=== PATIENT | female | born 1975 | race Caucasian/White ===

== ENCOUNTER 2017-11-12 16:01 | Emergency (ER) | payer OTHER ==
[~2017-11-12] VITALS: Ht 160 cm; Wt 66.2 kg
--- OUTSIDE RECORDS SUMMARY | ~2017-11-12 | XMS | Clinical Summary ---
Demographics + + + | Address | [address] | | | [place] [address] | + + + | Home Phone | | + + + | Preferred Language | Unknown | + + + | Marital Status | Single | + + + | Pentecostal Affiliation | Unknown | + + + | Race | Unknown | + + + | Ethnic Group | Unknown | + + + Author + + + | Author | [facility] | | | and [place] | + + + | Organization | [facility] | | | and [place] | + + + | Address | Unknown | + + + | Phone | Unavailable | + + + Support + + +---------+ + | Name | Relationship | Address | Phone | + + +---------+ + | TIBURCIO ACOSTA | ECON | Unknown | | + + +---------+ + Care Team Providers + +------+ + | Care Doctor Of Nurse Anesthesia Name | Role | Phone | + +------+ + PP | Unavailable | + +------+ + Allergies + + + +--------+ + | Active Allergy | Reactions | Severity | Noted | Comments | | | | | Date | | + + + +--------+ + | Butorphanol | | | | | + + + +--------+ + Current Medications + + +-------+---------+------+------+-------+ | Prescription | Sig. | Disp. | Refills | Star | End | Statu | | | | | | t | Date | s | | | | | | Date | | | + + +-------+---------+------+------+-------+ | propranolol | Take 20 mg by mouth | | | 10/08 | | Activ | | (INDERAL) 20 MG | 2 times daily. | | | 04/26 | | e | | tablet | | | | 12 | | | + + +-------+---------+------+------+-------+ | acetaminophen | Take 325 mg by mouth | | | 10/08 | | Activ | | (TYLENOL) 325 mg | as needed. | | | 320 | | e | | tablet | | | | 12 | | | + + +-------+---------+------+------+-------+ | | Take 500-25 mg by | | | 10/08 | | Activ | | diphenhydrAMINE-acet | mouth nightly as | | | 320 | | e | | aminophen (TYLENOL | needed. 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 | + + + | SLEEP APNEA | 08/17/2010 | + + + + + | Overview: ICD-10 Record update | + + + +---+ | LYMPHADENOPATHY | | + +---+ | HEADACHE, CHRONIC | | + +---+ | ALLERGY, FOOD, HX OF | | + +---+ | DYSPNEA ON EXERTION | | + +---+ Social History + +-------+ +--------+------+ | Tobacco Use | Types | Packs/Day | Years | Date | | | | | Used | | + +-------+ +--------+------+ | Never Assessed | | | | | + +-------+ +--------+------+ + + + | Sex Assigned at | Date Recorded | | | | + + + | Not on file | | + + + Last Filed Vital Signs + + + + | Vital Sign | Reading | Time Taken | + + + + | Blood Pressure | 90/62 | 08/17/2010 0000 PDT | + + + + | Pulse | - | - | + + + + | Temperature | - | - | + + + + | Respiratory Rate | - | - | + + + + | Oxygen Saturation | - | - | + + + + | Inhaled Oxygen | - | - | | Concentration | | | + + + + | Weight | 56.7 kg (125 lb) | 08/17/2010 0000 PDT | + + + + | Height | 162.6 cm (5' 4") | 07/07/2010 0000 PDT | + + + + | Body Mass Index | 21.46 | 08/17/2010 0000 PDT | + + + + Plan of Treatment + + + + + | Health Maintenance | Due Date | Last Done | Comments | + + + + + | Vaccine: | | | | | Dtap/Tdap/Td (1 - | 7 | | | | Tdap) | | | | + + + + + | Cervical Cancer | | | | | Screening (Pap) | 8 | | | + + + + + | Vaccine: Influenza | | | | | (#1) | 8 | | | + + + + + Results Not on filefrom Last 3 Months
--- OUTSIDE RECORDS SUMMARY | ~2017-11-12 | XMS | Clinical Summary ---
Demographics + + + | Address | [address] | | | [place] [address] | + + + | Home Phone | | + + + | Preferred Language | Unknown | + + + | Marital Status | Single | + + + | Evangelical Affiliation | 1013 | + + + | Race | Unknown | + + + | Ethnic Group | Unknown | + + + Author + + + | Author | [facility] | + + + | Organization | [facility] | + + + | Address | Unknown | + + + | Phone | Unavailable | + + + Support + + +---------+ + | Name | Relationship | Address | Phone | + + +---------+ + | Pattie Guillen | ECON | Unknown | | + + +---------+ + Care Team Providers + +------+ + | Care Clerk Travel Reservations Name | Role | Phone | + +------+ + | Candelario Partida DO | PP | | + +------+ + Allergies Not on File Current Medications Not on file Active Problems Not on file Social History + +-------+ +--------+------+ | Tobacco [...] on file | | + + + Plan of Treatment Not on file Results Not on filefrom Last 3 Months"
--- OUTSIDE RECORDS SUMMARY | ~2017-11-12 | XMS | Clinical Summary ---
Demographics + + + | Address | [address] | | | [place] [address] | + + + | Home Phone | | + + + | Preferred Language | Unknown | + + + | Marital Status | Single | + + + | Jewish Affiliation | 1013 | + + + | Race | Unknown | + + + | Ethnic Group | Unknown | + + + Author + + + | Author | [facility] | + + + | Organization | [facility] | + + + | Address | Unknown | + + + | Phone | Unavailable | + + + Support + + +---------+ + | Name | Relationship | Address | Phone | + + +---------+ + | Pattie Guillen | ECON | Unknown | | + + +---------+ + Care Team Providers + +------+ + | Care Metal Sprayer Machined Parts Name | Role | Phone | + [...]
--- OUTSIDE RECORDS SUMMARY | ~2017-11-12 | XMS | Clinical Summary ---
Demographics + + + | Address | [address] | | | [place] [address] | + + + | Home Phone | | + + + | Preferred Language | Unknown | + + + | Marital Status | Single | + + + | Gnosticist Affiliation | Unknown | + + + | Race | Unknown | + + + | Ethnic Group | Unknown | + + + Author + + + | Author | [facility] | | | and [place] | + + + | Organization | [facility] | | | and [place] | [...] Team Providers + +------+ + | Care Air Marshal Name | Role | Phone | + [...]
[~2017-11-12 16:01] MED LIST: AMBIEN5 MG PO; BAYER BACK & B1 EACH PO; BENTYL20 MG PO; BUSPIRONE HCL15 MG PO; BUTALBITAL-ASA1 EACH PO; COMPAZINE25 MG RC; CRUTCH1 EACH; DICLOFENAC SODI75 MG PO; EXCEDRIN MIGRA1 EAC1 PO; FIORICET 50-321 EACH PO; IBUPROFEN600 MG PO; IBUPROFEN800 MG PO; MAXALT MLT10 MG PO; NORCO 10-325 T1 EACH PO; NORCO 5-325 TA1 EACH PO; PROPRANOLOL HCL20 MG PO; TRAMADOL HCL50 MG PO; TYLENOL EXTRA500 M1 PO
[2017-11-12] MEDS ORDERED: RIZATRIPTAN5 M1 PO (16:31)
[2017-11-12] MEDS ORDERED: REGLAN10 MG PO (17:50)
== END 2017-11-12 18:31 | disposition home or self-care (01) ==
LOC: ED 16:01
DX: G43.909 Migraine, unspecified, not intractable, without status migrainosus (principal); F17.200 Nicotine dependence, unspecified, uncomplicated; Z88.8 Allergy status to other drugs, medicaments and biological substances; Z91.018 Allergy to other foods; Z79.899 Other long term (current) drug therapy
CPT/HCPCS: 96374; 96375; 99283; J1200; J2765

== ENCOUNTER 2020-09-20 10:21 | Emergency (ER) | payer BC ==
[~2020-09-20] VITALS: Ht 160 cm; Wt 66.2 kg
[~2020-09-20 10:21] MED LIST changes: +ONDANSETRON ODT8 MG PO; +REGLAN10 MG PO; +RIZATRIPTAN5 M1 PO
--- OUTSIDE RECORDS SUMMARY | 2020-09-20 10:24 | XMS ---
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 Elder has no Care Guidelines for this patient. Osmani VISIT COUNT (12 MO.) 1 [place] [address] SHAMEKA Guevara TOTAL 2 NOTE: Visits indicate total known visits. ED/C VISIT TRACKING (12 MO.) 09/20/2020 10:22 SHAME[facility] Gregory [place] TYPE: Emergency COMPLAINT: - HEADACHE 11/24/2019 09:53 [facility] [place] TYPE: Emergency DIAGNOSES: - Contusion of left front wall of thorax, initial encounter - LEFT SIDE PAIN DUE TO FALL - Strain of muscle, fascia and tendon at neck level, initial encounter INPATIENT VISIT TRACKING (12 MO.) No inpatient visits to display in this time frame [id number]
[2020-09-20] MEDS ORDERED: RIZATRIPTAN10 M1 PO (10:44)
[2020-09-20] MEDS ORDERED: DESVENLAFAXINE25 MG PO (10:44)
== END 2020-09-20 13:02 | disposition home or self-care (01) ==
LOC: ED 10:21
DX: G43.909 Migraine, unspecified, not intractable, without status migrainosus (principal); F17.200 Nicotine dependence, unspecified, uncomplicated; Z88.8 Allergy status to other drugs, medicaments and biological substances; Z79.899 Other long term (current) drug therapy
CPT/HCPCS: 96374; 96375; 99283-25; J1200; J1885; J2550; J7030

== ENCOUNTER 2021-04-23 06:21 | Emergency (ER) | payer BC ==
[~2021-04-23] VITALS: Ht 160 cm; Wt 70.1 kg
[~2021-04-23 06:21] MED LIST changes: +DESVENLAFAXINE25 MG PO; +RIZATRIPTAN10 M1 PO
[2021-04-23] MEDS ORDERED: ALPRAZOLAM0.25 MG PO (07:02)
[2021-04-23] MEDS ORDERED: MACROBID 100 M100 MG PO (07:12)
== END 2021-04-23 08:58 | disposition home or self-care (01) ==
LOC: ED 06:21
DX: N39.0 Urinary tract infection, site not specified (principal); G43.909 Migraine, unspecified, not intractable, without status migrainosus; F17.200 Nicotine dependence, unspecified, uncomplicated; Z88.8 Allergy status to other drugs, medicaments and biological substances; Z91.018 Allergy to other foods; Z79.899 Other long term (current) drug therapy
CPT/HCPCS: 36415; 80048; 81001; 84703; 85025; 87088; 96365; 96375; 96376; 99283-25; A9270; J0696; J2270; J7030

== ENCOUNTER 2021-05-02 01:43 | Emergency (ER) | payer BC ==
[~2021-05-02] VITALS: Ht 160 cm; Wt 70.8 kg
[~2021-05-02 01:43] MED LIST changes: +ALPRAZOLAM0.25 MG PO; +MACROBID 100 M100 MG PO
--- OUTSIDE RECORDS SUMMARY | 2021-05-02 01:46 | XMS ---
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 EAndrew VISIT COUNT (12 MO.) 3 [facility] TOTAL 3 NOTE: Visits indicate total known visits. ED/UCC VISIT TRACKING (12 MO.) 05/02/2021 01:43 [facility] Gregory [place] TYPE: Emergency COMPLAINT: - ALLERGIC REACTION 04/23/2021 06:22 SHAME[facility] Gregory [place] TYPE: Emergency COMPLAINT: - BOTH FLANK PAIN DIAGNOSES: - Urinary tract infection, site not specified - Migraine, unspecified, not intractable, without status migrainosus - Other intermediate project manager (current) drug therapy - Nicotine dependence, unspecified, uncomplicated - Unspecified abdominal pain - Allergy to other foods - Allergy status to other drugs, medicaments and biological substances 09/20/2020 10:[email or web address] [facility] [place] TYPE: Emergency COMPLAINT: - HEADACHE DIAGNOSES: - Other intermediate project manager (current) drug therapy - Headache, unspecified - Nicotine dependence, unspecified, uncomplicated - Migraine, unspecified, not intractable, without status migrainosus - Allergy status to other drugs, medicaments and biological substances INPATIENT VISIT TRACKING (12 MO.) No inpatient visits to display in this time frame [id number]
[2021-05-02] MEDS ORDERED: LEVOFLOXACIN250 MG PO (01:56)
[2021-05-02] MEDS ORDERED: EPIN0.3P IM (02:34)
[2021-05-02] MEDS ORDERED: PREDNISONE20 MG PO (02:34)
[2021-05-03] MEDS ORDERED: HYDROXYZINE HCL25 MG PO (11:02)
[2021-05-03] MEDS ORDERED: PREDNISONE20 MG PO (11:02)
== END 2021-05-02 03:00 | disposition home or self-care (01) ==
LOC: ED 01:43
DX: L50.0 Allergic urticaria (principal); G43.909 Migraine, unspecified, not intractable, without status migrainosus; F17.200 Nicotine dependence, unspecified, uncomplicated; Z88.8 Allergy status to other drugs, medicaments and biological substances; Z91.018 Allergy to other foods; Z79.899 Other long term (current) drug therapy
CPT/HCPCS: 96374; 96375; 99283-25; J1100; J1200

== ENCOUNTER 2021-05-03 07:47 | Emergency (ER) | payer BC ==
[~2021-05-03] VITALS: Ht 160 cm; Wt 70.8 kg
[~2021-05-03 07:47] MED LIST changes: +EPIN0.3P IM; +LEVOFLOXACIN250 MG PO; +PREDNISONE20 MG PO
--- OUTSIDE RECORDS SUMMARY | 2021-05-03 07:50 | XMS ---
PreManage Notification: DENISE SPRINGER Security Maintenance Craftsman Events No recent Security Events currently on file [facility] [place] [facility] C[facility] PROVIDERS [facility] Current PHONE: [phone] Elder has no Care Guidelines for this patient. EAndrew VISIT COUNT (12 MO.) 4 [facility] TOTAL 4 NOTE: Visits indicate total known visits. ED/UCC VISIT TRACKING (12 MO.) 05/03/2021 07:48 [facility] Gregory [place] TYPE: Emergency COMPLAINT: - POSS ALERGIC REACTION 05/02/2021 01:43 [facility] Gregory [place] TYPE: Emergency COMPLAINT: - ALLERGIC REACTION 04/23/2021 06:22 SHAME[facility] Gregory [place] TYPE: Emergency COMPLAINT: - BOTH FLANK PAIN DIAGNOSES: - Urinary tract infection, site not specified - Migraine, unspecified, not intractable, without status migrainosus - Other fpc (current) drug therapy - Nicotine dependence, unspecified, uncomplicated - Unspecified abdominal pain - Allergy to other foods - Allergy status to other drugs, medicaments and biological substances 09/20/2020 10:22 [facility] Gregory [place] TYPE: Emergency COMPLAINT: - HEADACHE DIAGNOSES: - Other fpc (current) drug therapy - Headache, unspecified - Nicotine dependence, unspecified, uncomplicated - Migraine, unspecified, not intractable, without status migrainosus - Allergy status to other drugs, medicaments and biological substances INPATIENT VISIT TRACKING (12 MO.) No inpatient visits to display in this time frame [id number]
[2021-05-03] MEDS ORDERED: HYDROXYZINE HCL25 MG PO (11:02)
[2021-05-03] MEDS ORDERED: PREDNISONE20 MG PO (11:02)
== END 2021-05-03 11:10 | disposition home or self-care (01) ==
LOC: ED 07:47
DX: L50.0 Allergic urticaria (principal); G43.909 Migraine, unspecified, not intractable, without status migrainosus; F17.200 Nicotine dependence, unspecified, uncomplicated; Z88.8 Allergy status to other drugs, medicaments and biological substances; Z91.018 Allergy to other foods; Z79.899 Other long term (current) drug therapy
CPT/HCPCS: 96374; 96375; 99283-25; J0171; J1100

== ENCOUNTER 2021-07-24 10:31 | Emergency (ER) | payer BC ==
[~2021-07-24] VITALS: Ht 160 cm; Wt 68.0 kg
[~2021-07-24 10:31] MED LIST changes: +HYDROXYZINE HCL25 MG PO
--- OUTSIDE RECORDS SUMMARY | 2021-07-24 10:34 | XMS ---
PreManage Notification: DENISE SPRINGER Security Golf Starter And Ranger Events No recent Security Events currently on file CRITERIA MET - PDMP CARE PROVIDERS RA[facility] 09/22/2020-Current PHONE: [phone] Elder has no Care Guidelines for this patient. E.DLorraine VISIT COUNT (12 MO.) 5 SHAMEKA Guevara TOTAL 5 NOTE: Visits indicate total known visits. ED/UCC VISIT TRACKING (12 MO.) 07/24/2021 10:32 SHAME[facility] Gregory [place] TYPE: Emergency COMPLAINT: - CHEST PAIN, L BACK/SHOULDER/ARM PAIN 05/03/2021 07:48 SHAME[facility] Gregory [place] TYPE: Emergency COMPLAINT: - POSS ALERGIC REACTION DIAGNOSES: - Allergic urticaria - Allergy status to other drugs, medicaments and biological substances - Other machine long goods helper (current) drug therapy - Migraine, unspecified, not intractable, without status migrainosus - Allergy to other foods - Nicotine dependence, unspecified, uncomplicated 05/02/2021 01:43 SHAME[facility] Gregory [place] TYPE: Emergency COMPLAINT: - ALLERGIC REACTION DIAGNOSES: - Rash and other nonspecific skin eruption - Other machine long goods helper (current) drug therapy - Nicotine dependence, unspecified, uncomplicated - Allergic urticaria - Allergy to other foods - Allergy status to other drugs, medicaments and biological substances - Migraine, unspecified, not intractable, without status migrainosus 04/23/2021 06:22 [facility] Gregory [place] TYPE: Emergency COMPLAINT: - BOTH FLANK PAIN DIAGNOSES: - Urinary tract infection, site not specified - Migraine, unspecified, not intractable, without status migrainosus - Other machine long goods helper (current) drug therapy - Nicotine dependence, unspecified, uncomplicated - Unspecified abdominal pain - Allergy to other foods - Allergy status to other drugs, medicaments and biological substances 09/20/2020 10:22 [facility] Gregory [place] TYPE: Emergency COMPLAINT: - HEADACHE DIAGNOSES: - Other machine long goods helper (current) drug therapy - Headache, unspecified - Nicotine dependence, unspecified, uncomplicated - Migraine, unspecified, not intractable, without status migrainosus - Allergy status to other drugs, medicaments and biological substances INPATIENT VISIT TRACKING (12 MO.) No inpatient visits to display in this time frame [id number]
--- NOTE | 2021-07-26 12:32 | EKG ---
[facility] [address] [place] [address] Signed Normal sinus rhythm Normal ECG No previous ECGs available Confirmed by EMMANUEL REDDING MD ([id number]) on 07/26/2021 12:31:55 PM Electronically Signed By: EMMANUEL REDDING MD 07/26/21 1232 PATIENT NAME: DENISE SPRINGER Electrocardiogram DATE OF : 79 PHYSICIAN: EMMANUEL REDDNIG MD REPORT #: [id number] REPORT IS CONFIDENTIAL AND NOT TO BE RELEASED WITHOUT AUTHORIZATION
== END 2021-07-24 11:43 | disposition home or self-care (01) ==
LOC: ED 10:31
DX: R07.89 Other chest pain (principal); M79.10 Myalgia, unspecified site; G43.909 Migraine, unspecified, not intractable, without status migrainosus; F17.200 Nicotine dependence, unspecified, uncomplicated; Z88.8 Allergy status to other drugs, medicaments and biological substances; Z79.52 Long term (current) use of systemic steroids
CPT/HCPCS: 36415; 71045; 80053; 84484; 85025; 93005; 93010; 99285-25

== ENCOUNTER 2022-03-30 05:45 | Emergency (ER) | payer BC ==
[~2022-03-30] VITALS: Ht 160 cm; Wt 68.1 kg
--- OUTSIDE RECORDS SUMMARY | 2022-03-30 05:48 | XMS ---
PreManage Notification: DENISE SPRINGER Security Meter/Relay Craftsman Events No recent Security Events currently on file CRITERIA MET - PDMP CARE PROVIDERS [facility] 09/22/2020-Current PHONE: [phone] Elder has no Care Guidelines for this patient. E.DLorraine VISIT COUNT (12 MO.) 5 SHAMEKA Guevara TOTAL 5 NOTE: Visits indicate total known visits. ED/UCC VISIT TRACKING (12 MO.) 03/30/2022 05:45 [facility] Gregory [place] TYPE: Emergency COMPLAINT: - ABD PAIN 07/24/2021 10:32 SH[facility] Gregory [place] TYPE: Emergency COMPLAINT: - CHEST PAIN, L BACK/SHOULDER/ARM PAIN DIAGNOSES: - Migraine, unspecified, not intractable, without status migrainosus - joint terminal attack controller (current) use of systemic steroids - Nicotine dependence, unspecified, uncomplicated - Allergy status to other drugs, medicaments and biological substances - Other chest pain - Myalgia, unspecified site 05/03/2021 07:48 SH[facility] Gregory [place] TYPE: Emergency COMPLAINT: - POSS ALERGIC REACTION DIAGNOSES: - Allergic urticaria - Nicotine dependence, unspecified, uncomplicated - Migraine, unspecified, not intractable, without status migrainosus - Allergy status to other drugs, medicaments and biological substances - Allergy to other foods - Other watermaster (current) drug therapy 05/02/2021 01:43 [facility] Gregory [place] TYPE: Emergency COMPLAINT: - ALLERGIC REACTION DIAGNOSES: - Rash and other nonspecific skin eruption - Allergy status to other drugs, medicaments and biological substances - Allergic urticaria - Other watermaster (current) drug therapy - Migraine, unspecified, not intractable, without status migrainosus - Allergy to other foods - Nicotine dependence, unspecified, uncomplicated 04/23/2021 06:22 [facility] Gregory [place] TYPE: Emergency COMPLAINT: - BOTH FLANK PAIN DIAGNOSES: - Urinary tract infection, site not specified - Allergy to other foods - Nicotine dependence, unspecified, uncomplicated - Migraine, unspecified, not intractable, without status migrainosus - Allergy status to other drugs, medicaments and biological substances - Unspecified abdominal pain - Other care home (current) drug therapy INPATIENT VISIT TRACKING (12 MO.) No inpatient visits to display in this time frame [id number]
== END 2022-03-30 07:00 | disposition home or self-care (01) ==
LOC: ED 05:45
DX: K59.00 Constipation, unspecified (principal); G43.909 Migraine, unspecified, not intractable, without status migrainosus; F17.200 Nicotine dependence, unspecified, uncomplicated; Z88.8 Allergy status to other drugs, medicaments and biological substances; Z91.018 Allergy to other foods; Z79.899 Other long term (current) drug therapy
CPT/HCPCS: 74022; 99283-25

== ENCOUNTER 2022-05-27 10:51 | Day surgery (SDC) | payer BC ==
[~2022-05-27] VITALS: Ht 160 cm; Wt 74.0 kg
[~2022-05-27 10:51] MED LIST changes: +RIZATRIPTAN5 MG PO
[2022-05-27 11:18] VITALS: BP 112/76
--- NOTE | 2022-05-27 12:16 | NUR ---
05/27/22 1216 Viola Bunn 1206 PATIENT ARRIVES TO PACU AWAKE BUT DROWSY. NC AT 2 LITERS ON ARRIVAL TURNED OFF. PATIENT DENIES PAIN AND NAUSEA. RESP EVEN AND UNLABORED. 1212 PATIENT AWAKE TALKING TO STAFF APPROPRIATELY. RESP EVEN AND UNLABORED. CONTINUES TO DENY PAIN AND NAUSEA. SITTING UP TAKING SIPS OF SODA. O2 SAT >95% ON ROOM AIR. PASSES GAS.
[2022-05-27 12:34] VITALS: BP 109/82
--- NOTE | 2022-05-27 19:14 | OR ---
[facility] [address] [place], [place] [address] Signed DATE OF OPERATION: 05/27/2022 SURGEON: Robert Gupta MD PREOPERATIVE DIAGNOSIS: Chronic progressive constipation. POSTOPERATIVE DIAGNOSIS: Normal-appearing colon. PROCEDURE: Total colonoscopy to cecum with biopsy of rectum. ANESTHESIA: Intravenous sedation, fentanyl 150 mcg and Versed 10 mg. INDICATIONS: This 46-year-old white woman is a patient of Dr. Lola Mckee, has been bothered by constipation rather significantly. She has no blood per rectum and no family history of colon cancer. Her medications include alprazolam, BuSpar, Rizatriptan, and Zofran as needed. Various approaches for management have been unsuccessful thus far. She is admitted to undergo colonoscopy to assure there is no evidence of obstructive process, understanding the risk of bleeding, infection, and perforation related to colonoscopy. She understand that she wished to proceed. FINDINGS: The prep was excellent. Complete colonoscopy was undertaken to the cecum. There was some difficulty in passage of the sigmoid, possibly related to scar tissue from hysterectomy, though that is not certain. There is no true obstruction and certainly no other abnormality that would account for constipation problem. DESCRIPTION OF PROCEDURE: The patient was brought to the endoscopy suite and placed in lateral decubitus position given intravenous sedation to the point of slurred speech and nystagmus. Digital rectal examination was normal. An Olympus video colonoscope was passed into the rectum and manipulated throughout the colon. Passage to the sigmoid area was somewhat challenging requiring additional sedation. Once past that area, the scope was ultimately advanced to the cecum. The prep was quite good. The scope was withdrawn from that point. Examination throughout showed no sign of abnormality at all. Biopsies were taken of the rectum to rule out pathology. The scope was removed, and the patient was Electronically Signed By: ROBERT GUPTA MD 05/27/22 1914 PATIENT NAME: DENISE SPRINGER OPERATIVE REPORT DATE OF : 79 REPORT #: [id number] PHYSICIAN: ROBERT GUPTA MD PCP: LOLA MCKEE MD REPORT IS CONFIDENTIAL AND NOT TO BE RELEASED WITHOUT AUTHORIZATION [facility] [address] [place], [place] [address] Signed taken to the recovery room in good condition. CONCLUDING DIAGNOSIS: Idiopathic constipation, longstanding and worsening. PLAN: We will outline a regimen to include MiraLAX 1 scoop p.o. daily, Citrucel one scoop p.o. daily, Senokot one tablet p.o. daily and increase water intake and exercise. She will see us back in the office and if these measures are not effective in establishing a good bowel routine for her, consideration will be made for Linzess or other similar agent. MD EDGAR Bryant/VALENT[place] /[id number] cc: Lola Mckee MD Copies: LOLA MCKEE DMD ~ Electronically Signed By: ROBERT GUPTA MD 05/27/22 1914 PATIENT NAME: SPRINGERDENISEGERI WILKINS OPERATIVE REPORT DATE OF : 79 REPORT #: [id number] PHYSICIAN: ROBERT GUPTA MD PCP: LOLA MCKEE MD REPORT IS CONFIDENTIAL AND NOT TO BE RELEASED WITHOUT AUTHORIZATION
== END 2022-05-27 12:45 | disposition home or self-care (01) ==
LOC: OPS 10:51 → DS 11:00 → OPS 12:00 → DS 12:00 → OPS 12:45
PROVIDERS: ATTEND Surgery
DX: K59.09 Other constipation (principal); Z90.711 Acquired absence of uterus with remaining cervical stump; Z88.8 Allergy status to other drugs, medicaments and biological substances; Z79.899 Other long term (current) drug therapy
CPT/HCPCS: 99153; G0500; J2250; J3010; J7121